=== PATIENT | female | born 1970 | race Caucasian/White ===

== ENCOUNTER → 2017-01-21 | Outpatient (CLI) | payer BC ==
[~2017-01-21] MED LIST: HCTZ 25MG TAB25 MG PO; IBU600 MG PO; NORCO 325 MG-51 TAB PO; PROTONIX20 MG PO; ZOFRAN ODT4 MG PO
== END ==
LOC: MC.RAD 07:40
DX: Z12.31 Encounter for screening mammogram for malignant neoplasm of breast (principal)

== ENCOUNTER → 2017-05-28 | Outpatient (CLI) | payer BC | LOC: COL.RAD 08:10 | DX: K80.20 Calculus of gallbladder without cholecystitis without obstruction (principal); K76.0 Fatty (change of) liver, not elsewhere classified ==

== ENCOUNTER 2017-07-02 05:38 | Day surgery (SDC) | payer BC ==
[2017-07-02] VITALS (7 sets, daily range): BP systolic 129–155; BP diastolic 65–90; PULSE 65–101; TEMP 98–98.3
[~2017-07-02] VITALS: Ht 165.1 cm; Wt 111.8 kg
[2017-07-02] MEDS ORDERED: PROTONIX20 MG PO (06:38)
[2017-07-02] MEDS ORDERED: HCTZ 25MG TAB25 MG PO (06:38)
[2017-07-02] MEDS ORDERED: NORCO 325 MG-51 TAB PO (06:39)
[2017-07-02] MEDS ORDERED: IBU600 MG PO (06:40)
[2017-07-02] MEDS ORDERED: ZOFRAN ODT4 MG PO (06:40)
== END 2017-07-02 11:45 | disposition home or self-care (01) ==
LOC: SDCO 05:38
DX: K80.10 Calculus of gallbladder with chronic cholecystitis without obstruction (principal); I10 Essential (primary) hypertension; J45.909 Unspecified asthma, uncomplicated; K21.9 Gastro-esophageal reflux disease without esophagitis; E66.9 Obesity, unspecified; Z68.41 Body mass index [BMI] 40.0-44.9, adult; Z83.3 Family history of diabetes mellitus; Z80.0 Family history of malignant neoplasm of digestive organs
CPT/HCPCS: J1100; J1170; J1885; J2250; J2405; J2704; J2765; J7120

== ENCOUNTER → 2017-10-01 | Outpatient (CLI) | payer BC | LOC: COL.RAD 10:59 | DX: E04.1 Nontoxic single thyroid nodule (principal) ==

== ENCOUNTER 2019-01-21 10:00 | Outpatient (RCR) | payer BC | END 2019-03-08 | disposition home or self-care (01) | LOC: WSC | DX: M51.27 Other intervertebral disc displacement, lumbosacral region (principal) ==

== ENCOUNTER → 2019-12-08 | Outpatient (CLI) | payer BC | LOC: MC.RAD 10:53 | DX: Z12.31 Encounter for screening mammogram for malignant neoplasm of breast (principal) ==

== ENCOUNTER → 2022-05-13 | Outpatient (CLI) | payer BC | LOC: MC.RAD 10:48 | DX: Z12.31 Encounter for screening mammogram for malignant neoplasm of breast (principal) ==

== ENCOUNTER → 2023-07-30 | Outpatient (CLI) | payer BC ==
[~2023-07-30] MED LIST changes: +K-TAB10 PO
== END ==
LOC: CANSCHCLI → COL.RAD 06:59
DX: R55 Syncope and collapse (principal)
CPT/HCPCS: Q9967

== ENCOUNTER 2023-08-07 14:22 | Emergency (ER) | payer BC ==
[~2023-08-07] VITALS: Ht 165.1 cm; Wt 72.7 kg
[~2023-08-07 14:22] MED LIST changes: -K-TAB10 PO
[2023-08-07 15:06] LABS: BASO # 0.1 K/mm3 (0.0-0.2); BASO % 0.8 % (0.0-2.0); EOS # 0.1 K/mm3 (0.0-0.7); EOS % 1.2 % (0.0-4.0); GRAN # 3.5 K/mm3 (1.4-6.5); GRAN % 47.1 % (42.2-75.2); HEMOGLOBIN 11.5 g/dl (12.5-16.0); LYMPH # 3.1 K/mm3 (1.2-3.4); LYMPH % 42.2 % (20.0-51.0); MEAN CELL VOLUME 96 fl (80.0-100.0); MEAN CORPUSCULAR HEMOGLOBIN 32 pg (27-31); MEAN CORPUSCULAR HGB CONC 33 g/dl (33.0-37.0); MEAN PLATELET VOLUME 10.3 fl (7.4-10.4); MONO # 0.6 K/mm3 (0.1-0.6); MONO % 8.4 % (1.7-9.3); PLATELET COUNT 311 K/mm3 (130-400); RED BLOOD COUNT 3.65 M/mm3 (4.10-5.30); REDCELL DISTRIBUTION WIDTH-CV 12.7 % (11.5-14.5)
[2023-08-07 15:21] LABS: ALANINE AMINOTRANSFERASE 34 U/L (0-55); ALBUMIN 4.2 gm/dL (3.5-5.0); ALKALINE PHOSPHATASE 58 U/L (40-150); ANION GAP 14 mmol/L (7-16); AST,SGOT 77 U/L (5-34); BILIRUBIN,TOTAL 0.3 mg/dL (0.2-1.2); BLOOD UREA NITROGEN 16 mg/dL (10-20); CALCIUM 9.2 mg/dL (8.4-10.2); CARBON DIOXIDE 18 mmol/L (22-29); CHLORIDE 109 mmol/L (98-107); GLUCOSE 97 mg/dL (70-99); LIPASE 41 U/L (8-78); SODIUM 141 mmol/L (136-145); TOTAL PROTEIN 7.1 gm/dL (6.2-8.1)
[2023-08-07 15:24] LABS: POTASSIUM 2.8 mmol/L (3.5-4.5)
[2023-08-07 15:27] LABS: TROPONIN-I < 0.010 ng/mL (0.00-0.033)
[2023-08-07 15:52] LABS: CREATININE, serum 1.17 mg/dL (0.57-1.11)
[2023-08-07] MEDS ORDERED: K-TAB10 PO (17:00)
[2023-08-07 17:30] VITALS: BP 142/76; PULSE 91; TEMP 97.3
== END 2023-08-07 17:45 | disposition home or self-care (01) ==
LOC: COL.ER 14:22
PROVIDERS: Emergency Medicine
DX: R10.13 Epigastric pain (principal); Z90.49 Acquired absence of other specified parts of digestive tract
CPT/HCPCS: J1170; J2270; J2405; J3480; J7030; Q9967